=== PATIENT | female | born 1980 | race Caucasian/White ===

== ENCOUNTER 2016-10-14 12:00 | Emergency (ER) | payer OTHER ==
[~2016-10-14 12:00] MED LIST: ALBUTEROL17 GM INH; METHADOSE PO
== END 2016-10-14 13:58 | disposition home or self-care (01) ==
LOC: CED 12:00
DX: H66.92 Otitis media, unspecified, left ear (principal); Z88.8 Allergy status to other drugs, medicaments and biological substances; F17.200 Nicotine dependence, unspecified, uncomplicated
CPT/HCPCS: 99282